=== PATIENT | male | born 1965 | race Caucasian/White ===

== ENCOUNTER 2016-10-02 12:19 | Emergency (ER) | payer OTHER ==
[2016-10-02 12:43] VITALS: RESP 18; TEMP 98.5
--- NOTE | 2016-10-02 13:37 | ED ---
Back Pain HPI - General Chief Complaint: Back Pain/Injury Stated Complaint: Hip/Knee pain Time Seen by Provider: 10/02/16 13:07 Source: patient, RN notes reviewed Limitations: no limitations - History of Present Illness Initial Comments: Patient is a 51-year-old male presents to the emergency room for evaluation of low back and left hip pain. Patient states that about a year ago he fell landing on his lower back/left hip. Patient states he never followed up with a primary care provider. Patient states that he had left over Vicodin from chronic shoulder pain that he was taking to help with low back pain. Patient states over the past few months the back and hip pain has been getting worse. Patient states the pain is now affecting his left knee when he walks. Patient states his pain is primarily in his left anterior hip area. Patient states the pain radiates to his groin. Patient denies saddle anesthesia, numbness or tingling in extremities or fecal/ear incontinence. Patient states he still has not followed up with a primary care provider. Patient states he can't get in with primary care provider until next week. Patient denies any recent injuries or falls. Patient denies any changes in physical activity. - Related Data Previous Rx's Medication Instructions Recorded HYDROcodone/APAP 5-325MG [[place] 1 tab PO Q6HR PRN #12 tab 10/02/16 5-325] predniSONE 40 mg PO DAILY #5 tab 10/02/16 Allergies Allergy/AdvReac Type Severity Reaction Status Date / Time No Known Allergies Allergy Verified 10/02/16 12:43 Review of Systems ROS Statement: Those systems with pertinent positive or pertinent negative responses have been documented in the HPI. ROS Other: All systems not noted in ROS Statement are negative. Past Medical History Past Medical History: No Reported History History of Any Multi-Drug Resistant Organisms: None Reported Past Surgical History: No Surgical Hx Reported Past Psychological History: No Psychological Hx Reported Smoking Status: Current every day smoker Past Alcohol Use History: Occasional Past Drug Use History: None Reported General Exam - General Exam Comments Initial Comments: Sitting in exam room, in no acute distress. Limitations: no limitations General appearance: alert, in no apparent distress Head exam: Present: atraumatic, normocephalic, normal inspection Eye exam: Present: normal appearance ENT exam: Present: normal exam Neck exam: Present: normal inspection Respiratory exam: Absent: respiratory distress Left Hip exam: Present: normal inspection, full ROM, tenderness (Anterior lateral hip joint). Absent: swelling Upper Leg exam: Present: normal inspection, full ROM. Absent: tenderness Knee exam: Present: normal inspection, full ROM. Absent: tenderness Neurovascular tendon exam: Present: no vascular compromise. Absent: pulse deficit (2+ dorsal pedal and posterior tibial pulses), abnormal cap refill ( Capillary refill less than 2 seconds) Back exam: Present: normal inspection, full ROM. Absent: tenderness, paraspinal tenderness, vertebral tenderness Neurological exam: Present: alert, oriented X3, CN II-XII intact Psychiatric exam: Present: normal affect, normal mood Skin exam: Present: warm, dry, intact, normal color. Absent: rash Course Vital Signs 10/02/16 10/02/16 12:40 14:45 Temperature 98.5 F 98.5 F Pulse Rate 91 78 Respiratory 18 18 Rate Blood Pressure 164/101 180/100 O2 Sat by Pulse 96 97 Oximetry Medical Decision Making - Medical Decision Making Patient is a 51-year-old male presents to the emergency room for evaluation of low back and left hip pain. Lumbosacral spine x-ray and left hip x-ray showed evidence her osteoarthritis. Patient also noted to have elevated blood pressure. Patient denies headache, dizziness, chest pain, shortness of breath, diaphoresis. Patient's is present with patient states that she checks his blood pressure regularly and his blood pressure is usually never this high. Patient was given Catapres and advised to follow-up with primary care provider for further evaluation of blood pressure. Advised patient to follow-up with an community service specialist for further evaluation of hip arthritis. Will send patient home with pain medications. Patient states he understands everything that was discussed with him. Return parameters discussed. Case discussed Dr. Edwards. - Radiology Data Radiology results: report reviewed, image reviewed Disposition Clinical Impression: Osteoarthritis of left hip, Low back pain Disposition: HOME SELF-CARE Condition: Good Instructions: Osteoarthritis (ED), Arthritis (ED) Additional Instructions: Warm moist heat. Take medications as directed. Please follow up with primary care provider or community service specialist for further evaluation. If any new symptom arises or symptoms worsen, return to ER as soon as possible. Prescriptions: HYDROcodone/APAP 5-325MG [[place] 5-325] 1 tab PO Q6HR PRN #12 tab PRN Reason: Pain predniSONE 40 mg PO DAILY #5 tab Referrals: Hermelindo Barber MD [STAFF PHYSICIAN] - 1-2 days Time of Disposition: 14:03
--- NOTE | 2016-10-02 13:56 | XR ---
EXAMINATION TYPE: XR Hip Complete LT DATE OF EXAM: 10/02/2016 1:47 PM CLINICAL HISTORY: Left hip pain. TECHNIQUE: AP and frogleg views of the left hip are obtained. COMPARISON: None. FINDINGS: There is no acute fracture/dislocation evident in the left hip. There is advanced degenera tive change with marked superior joint space loss and moderate to severe head neck marginal spurring as well as subchondral cystic change in the acetabulum and femoral head. Some loss of normal femoral Circular shape is present. The overlying soft tissue appears unremarkable. IMPRESSION: There is advanced degenerative change left hip joint as detailed above.
--- NOTE | 2016-10-02 13:57 | XR ---
EXAMINATION TYPE: XR lumbosacral spine min 4V DATE OF EXAM: 10/02/2016 1:47 PM CLINICAL HISTORY: Low back pain TECHNIQUE: Frontal, lateral, and oblique images of the lumbar spine are obtained. COMPARISON: None FINDINGS: There are 5 lumbar type vertebral bodies identified. The lumbar spine shows satisfactory alignment without evidence of acute fracture or dislocation. Vertebral body heights and disk space he ights are within normal limits. Mild multilevel anterior spurring is present. Mild facet arthropathy lower lumbar levels is seen. The oblique images appear within normal limits. Some vascular calcifica tion of abdominal aorta is noted. IMPRESSION: Mild multilevel degenerative changes in lumbar spine as detailed above.
[2016-10-02] MEDS ORDERED: methylPREDNISolone SOD SUCCI 125 MG/2 ML VIAL IM ONE (14:01)
[2016-10-02] MEDS ORDERED: HYDROcodone/APAP 5-325MG 1 EACH TAB PO STA (14:03)
[2016-10-02] MEDS ORDERED: cloNIDine HCL 0.1 MG TAB PO STA (14:30)
[2016-10-02 14:48] VITALS: BP 180/100; PULSE 78
== END 2016-10-02 14:45 | disposition home or self-care (01) ==
LOC: EC 12:19
DX: M16.12 Unilateral primary osteoarthritis, left hip (principal); M54.5 Low back pain; R10.30 Lower abdominal pain, unspecified; I10 Essential (primary) hypertension; M25.562 Pain in left knee; F17.200 Nicotine dependence, unspecified, uncomplicated
CPT/HCPCS: 99283; 96372; 72110; 73502; J2930

== ENCOUNTER → 2016-10-16 | Outpatient (CLI) | payer OTHER ==
--- NOTE | 2016-10-16 15:22 | CT ---
EXAMINATION TYPE: CT pelvis wo con DATE OF EXAM: 10/16/2016 2:53 PM COMPARISON: NONE HISTORY: Lt hip, knee and pelvic pain TECHNIQUE: Helical acquisition through the pelvis was obtained without oral or intravenous contrast. The data was reformatted in axial, coronal and sagittal projections. FINDINGS: There is mild atheromatous calcification involving the visualized arterial tree. There are scattered diverticula throughout the colon. There are bilateral direct inguinal hernias containing fat only. No free fluid is seen. There is a spina bifida occulta at S1. There is facet arthropathy at L4-5 and to a lesser extent L5-S 1. There is pseudocystic change in the left humeral head. Both humeral heads are nonspherical. There is near complete loss of the superior joint space on the left and joint space loss on the right. No acut e osseous lesion is seen. CT DLP: 1125 mGycm Automated exposure control for dose reduction was used. IMPRESSION: 1. SEVERE DEGENERATIVE CHANGE IN THE LEFT HIP AND A LESSER DEGREE OF DEGENERATIVE CHANGES IN THE RIGH T HIP. THERE IS SOME DEGREE OF FEMOROACETABULAR IMPINGEMENT SYNDROME. 2. BILATERAL DIRECT INGUINAL HERNIAS CONTAINING FAT ONLY. 3. UNCOMPLICATED DIVERTICULOSIS OF THE SIGMOID COLON.
--- NOTE | 2016-10-16 15:24 | CT ---
EXAMINATION TYPE: CT lower leg LT wo con DATE OF EXAM: 10/16/2016 2:54 PM COMPARISON: CT pelvis same date HISTORY: Lt hip, pelvic and knee pain CT DLP: 1125 mGycm Automated exposure control for dose reduction was used. Helical imaging obtained through upper lower extremity. Three-dimensional reconstructions performed on an alternate workstation FINDINGS: There is a left inguinal hernia containing fat. Osteoarthritic changes present with subchondral geode formation, marginal spurring, joint space loss, there may be a component of acetabular femoral impin gement, correlate. No sizable hip joint effusion. The left femur is intact, there is no fracture or d islocation. No knee joint effusion. Soft tissues unremarkable, there are some arterial calcifications within the popliteal artery. IMPRESSION: OSTEOARTHRITIS AND POSSIBLE ACETABULAR FEMORAL IMPINGEMENT LEFT HIP. LEFT INGUINAL HERNIA.
== END | disposition home or self-care (01) ==
LOC: RADCTMAIN 14:14
PROVIDERS: ATTEND Family Medicine
DX: M16.12 Unilateral primary osteoarthritis, left hip (principal); M25.851 Other specified joint disorders, right hip
CPT/HCPCS: 72192

== ENCOUNTER 2018-06-14 13:42 | Emergency (ER) | payer BC, OTHER ==
[2018-06-14 13:49] VITALS: BP 137/95; PULSE 105; RESP 18; TEMP 98.5
[2018-06-14] MEDS ORDERED: KETOROLAC 60 MG/2 ML VIAL IM STA (14:02)
[2018-06-14] MEDS ORDERED: ORPHENADRINE 30 MG/ML 2 ML VIAL IM STA (14:02)
--- NOTE | 2018-06-14 14:04 | ED ---
Back Pain HPI - General Chief Complaint: Back Pain/Injury Stated Complaint: back pain Time Seen by Provider: 06/14/18 13:53 Source: patient, RN notes reviewed Limitations: no limitations - History of Present Illness Initial Comments: This is a pleasant 53-year-old male who presents emergency department after straining his back on Friday lifting at tarp which had dirt on it. Patient is complaining of sharp and aching pain to the left lumbar paraspinals radiating into the left buttock. Pain does not go down the leg. Patient states that movement exacerbates the pain. Patient denies pain elsewhere. No abdominal pain. No chest pain or shortness of breath. No problems with bowel movements or urination. No symptoms of saddle anesthesia. No fever or night sweats. No recent weight loss. No direct trauma. Patient states she does have a history of chronic left hip pain secondary to a bone spur. Patient states he was told that he needs surgery for his left hip. Patient is ambulating without difficulty. Patient does take tramadol at home for pain. Patient is also a cigarette smoker. No other complaints. MD Complaint: back pain - Related Data Previous Rx's Medication Instructions Recorded HYDROcodone/APAP 5-325MG [[place] 1 tab PO Q6HR PRN #12 tab 10/02/16 5-325] predniSONE 40 mg PO DAILY #5 tab 10/02/16 Cyclobenzaprine [Flexeril] 10 mg PO TID PRN #20 tab 06/14/18 methylPREDNISolone [Medrol] 4 mg PO DIRECTED #1 tab.ds.pk 06/14/18 Allergies Allergy/AdvReac Type Severity Reaction Status Date / Time No Known Allergies Allergy Verified 06/14/18 13:49 Review of Systems ROS Statement: Those systems with pertinent positive or pertinent negative responses have been documented in the HPI. ROS Other: All systems not noted in ROS Statement are negative. Past Medical History Past Medical History: No Reported History Additional Past Medical History / Comment(s): chronic hip pain History of Any Multi-Drug Resistant Organisms: None Reported Past Surgical History: No Surgical Hx Reported Past Psychological History: No Psychological Hx Reported Smoking Status: Current every day smoker Past Alcohol Use History: Occasional Past Drug Use History: None Reported General Exam Limitations: no limitations General appearance: alert, in no apparent distress Head exam: Present: atraumatic, normocephalic, normal inspection Eye exam: Present: normal appearance, EOMI. Absent: scleral icterus, conjunctival injection, periorbital swelling ENT exam: Present: normal exam, mucous membranes moist Neck exam: Present: normal inspection. Absent: tenderness, meningismus, lymphadenopathy Respiratory exam: Present: normal lung sounds bilaterally. Absent: respiratory distress, wheezes, rales, rhonchi, stridor Cardiovascular Exam: Present: regular rate, normal rhythm, normal heart sounds. Absent: systolic murmur, diastolic murmur, rubs, gallop, clicks GI/Abdominal exam: Present: soft. Absent: distended, tenderness, guarding, rebound, rigid Rectal exam: Present: deferred Extremities exam: Present: normal inspection, full ROM, normal capillary refill. Absent: tenderness, pedal edema, joint swelling, calf tenderness Back exam: Present: normal inspection, full ROM, tenderness, muscle spasm, paraspinal tenderness. Absent: vertebral tenderness, rash noted Expanded Back exam: Absent: saddle anesthesia Back exam: Negative Straight Leg Raising: Left, Right Neurological exam: Present: alert, oriented X3, CN II-XII intact Psychiatric exam: Present: normal affect, normal mood Skin exam: Present: warm, dry, intact, normal color. Absent: rash Course Vital Signs 06/14/18 13:46 Temperature 98.5 F Pulse Rate 105 H Respiratory 18 Rate Blood Pressure 137/95 Medical Decision Making - Medical Decision Making Return and follow-up parameters were discussed with the patient. Plain film x- rays lumbar spine were completed. Patient was counseled on smoking cessation. Patient was counseled on all findings. Patient counseling conservative measures. Patient does show degenerative changes especially at L2-L3. This was read as moderate spondylosis with disc space narrowing. This was progressive since last study. - Radiology Data Radiology results: report reviewed, image reviewed Disposition Clinical Impression: Mechanical back pain Disposition: HOME SELF-CARE Condition: Stable Instructions: How to Stop Smoking (ED), Acute Low Back Pain (ED) Additional Instructions: Call tomorrow morning for follow-up appointment with your regular physician. Return to the ER if any problems or difficulties arise or if the symptoms worsen. You can also take [id number] Tylenol as directed on the bottle for additional pain control. Apply moist heat to your back 20 minutes at a time 4 times daily. Partake in light walking for 20 minutes at a time a few times per day. Prescriptions: Cyclobenzaprine [Flexeril] 10 mg PO TID PRN #20 tab PRN Reason: Spasms methylPREDNISolone [Medrol] 4 mg PO DIRECTED #1 tab.ds.pk Is patient prescribed a controlled substance at d/c from ED?: No Referrals: Rios Rosenthal Jr, [Primary Care Provider] - 1-2 days Forms: Work/School Release
--- NOTE | 2018-06-14 15:03 | XR ---
EXAMINATION TYPE: XR lumbar spine 2 or 3V DATE OF EXAM: 06/14/2018 COMPARISON: October 02, 2016 HISTORY: Back pain TECHNIQUE: 3 views FINDINGS: Lumbar vertebra have fairly normal alignment. There is degenerative disc space narrowing at L2-3 with spurring. Posterior elements are intact. Abdominal aorta is atheromatous. Sacroiliac joint s are intact. IMPRESSION: There is moderate spondylosis at L2-3 that shows significant progression compared to old exam. No fracture.
[2018-06-14] MEDS ORDERED: methylPREDNISolone SOD SUCCI 125 MG/2 ML VIAL IM STA (15:13)
--- NOTE | 2018-06-16 08:10 | CDI ---
Documentation Clarification OP Dear Conrado Teresa PA-C Please provide smoking cessation total time spent on counseling for accurate charging purposes.. Thank you, Hernan Banegas Jacquard Loom Card Changer If you have any questions, please contact Senior Hardware Engineer at [phone] Do not remember on this May account. 09/03/18 KELLI
== END 2018-06-14 15:25 | disposition home or self-care (01) ==
LOC: EC 13:42
DX: M48.061 Spinal stenosis, lumbar region without neurogenic claudication (principal); M47.896 Other spondylosis, lumbar region; F17.210 Nicotine dependence, cigarettes, uncomplicated
CPT/HCPCS: 72100; 99283; 96372 ×3; J2360; J2930; J1885

== ENCOUNTER → 2018-07-31 | Outpatient (CLI) | payer SELFPAY | END | disposition home or self-care (01) | LOC: LABPAT 10:25 | PROVIDERS: ATTEND Anesthesiology | DX: Z01.818 Encounter for other preprocedural examination (principal); I10 Essential (primary) hypertension; M16.12 Unilateral primary osteoarthritis, left hip | CPT/HCPCS: 93005 ==

== ENCOUNTER 2018-08-04 06:14 | Inpatient (IN) | payer BC, OTHER ==
[2018-07-29 14:44] VITALS: BMI 25.5
--- NOTE | 2018-08-03 10:21 | HP ---
HISTORY AND PHYSICAL CHIEF COMPLAINT: Left hip pain. 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 It has worsened recently. He is having a difficult time with weightbearing activities. He limps significantly. He has tried medications and previous injections without much relief. PAST MEDICAL HISTORY: Significant for hypertension, arthritis. PAST SURGICAL HISTORY: Negative. CURRENT MEDICATIONS: Aleve, Tramadol and lisinopril. ALLERGIES: He denies drug allergies. FAMILY HISTORY: Significant for cancer. SOCIAL HISTORY: Significant for 1 pack per day tobacco use in addition to social alcohol use. REVIEW OF SYSTEMS: Sixteen point review of systems otherwise reviewed and is noncontributory. PHYSICAL EXAMINATION: On examination, the patient is approximately 5 foot 10, 180 pounds of mesomorphic habitus. HEENT exam is nonfocal. Neck is supple. Passive motion left hip, flexion 60 degrees, external rotation with the hip flexed 40 degrees, internal rotation -10 degrees with pain. Clinically, he has 1 cm shortening left lower extremity compared to the right. Does walk with an antalgic gait pattern. His distal neurovascular appears intact in the left lower extremity. AP and lateral views of the left hip along with a AP pelvis x-ray shows severe osteoarthrosis of the left hip with [id number] changes. Cystic changes involving the central portion of the femoral head are noted. IMPRESSION: Left hip severe osteoarthrosis-symptomatic. RECOMMENDATIONS: I talked to the patient at length at length regarding his condition and treatment options. After thorough discussion of his options, he opts to proceed with surgery. We will plan to proceed with left total hip arthroplasty using direct anterior technique. We will institute DVT prophylaxis postoperatively. Risks and benefits were discussed at length in layman's terms. MMODL / IJN: [id number] /
[~2018-08-04 06:14] MED LIST: ACETAMINOPHEN TAB 500 MG TAB PO ONE; DEXAMETHASONE SOD PHOSPHATE 10 MG/ML 1 ML VIAL IV ONE; LIDOCAINE 1% 20 ML VIAL (10MG/ML) FOR IV START INTRADERMA PRN; MELOXICAM 7.5 MG TAB PO ONE; MIDAZOLAM (PF) 2 MG/2 ML VIAL IV PRN; ONDANSETRON 4 MG/2 ML VIAL IVP ONE; TRANEXAMIC ACID 1,000 MG in SODIUM CHLORIDE 0.9% 50 ML IVPB ONE; ceFAZolin IN SWFI 2 GM/20 ML SYRINGE IVP ONE; fentaNYL (PF) 50 MCG/ML 2 ML AMP IV PRN
[2018-08-04] MEDS: LACTATED RINGERS 1,000 ML IV SCH (07:06)
[2018-08-04] MEDS ORDERED: TRANEXAMIC ACID 1,000 MG/10 ML VIAL ONE (08:00)
[2018-08-04] MEDS ORDERED: SODIUM CHLORIDE 0.9% 100 ML BAG ONE (08:00)
[2018-08-04] MEDS ORDERED: HEPARIN SODIUM,PORCINE 10,000 UNIT/ML 1 ML VIAL ONE (08:00)
[2018-08-04] MEDS ORDERED: fentaNYL (PF) 50 MCG/ML 2 ML AMP ONE (08:00)
[2018-08-04] MEDS ORDERED: SODIUM CHLORIDE 0.9% IRRIG 1,000 ML BTL IRRIGATION ONE (08:00)
[2018-08-04] MEDS ORDERED: MIDAZOLAM 2 MG/2 ML VIAL ONE (08:00)
[2018-08-04] MEDS ORDERED: ceFAZolin 3,000 MG in SODIUM CHLORIDE 0.9% IRRIGATIO 3,000 ML IRRIGATION ONE (08:39)
[2018-08-04] MEDS ORDERED: HYDROcodone/APAP 7.5-325MG 1 EACH TAB PO PRN ×2 (10:00)
[2018-08-04] MEDS ORDERED: MAGNESIUM HYDROXIDE 2,400 MG/10 ML CUP PO PRN (10:00)
[2018-08-04] MEDS ORDERED: NALOXONE 0.4 MG/ML 1 ML VIAL IV PRN (10:00)
[2018-08-04] MEDS ORDERED: HYDROmorphone 1 MG/ML 1 ML SYRINGE IVP PRN (10:00)
[2018-08-04] MEDS ORDERED: ONDANSETRON 4 MG/2 ML VIAL IVP PRN (10:00)
[2018-08-04] MEDS ORDERED: LACTATED RINGERS 1,000 ML IV ONE (10:04)
--- NOTE | 2018-08-04 10:14 | FL ---
EXAMINATION TYPE: FL guidance operating room, XR Hip Limited LT DATE OF EXAM: 08/04/2018 CLINICAL HISTORY: Left hip replacement. TECHNIQUE: Fluoroscopy. Limited intraoperative views left hip. COMPARISON: CT pelvis October 16, 2016. FINDINGS: Fluoroscopic guidance was provided during left hip replacement procedure performed by Dr. Garcia. A total of 59 seconds of fluoroscopic time was utilized during the procedure and single spot fluoroscopic intraoperative image is acquired. Single image acquired shows metallic hardware satisfactory in position on single frontal projection. IMPRESSION: As Above.
--- NOTE | 2018-08-04 10:30 | P.OP ---
Date of Procedure: 08/04/18 Preoperative Diagnosis: Left hip severe osteoarthrosis Postoperative Diagnosis: Same Procedure(s) Performed: Left total hip arthroplastyanterior approach. Implants: [employer] [place] size 12 press-fit standard collared femoral stem, 36 mm +5 cobalt chrome femoral head, 56 mm [place] acetabular shell, neutral polyethylene liner. Anesthesia: spinal Surgeon: John Garcia Train Crew Member #1: Nader Mcnamara Estimated Blood Loss (ml): 250 Pathology: other (Femoral head) Condition: stable Disposition: PACU Indications for Procedure: The patient's a 53-year-old male who presents with progressive left hip pain secondary to osteoporosis despite conservative measures. A discussion of the risks and benefits of operative intervention versus continued conservative measures was made with the patient. He opted to proceed with surgery. Operative risks to include infection, neurovascular injury, development of blood clots, possible instability, possible leg length discrepancy, and possible need for subsequent procedures was discussed. Informed consent was obtained. Operative Findings: As below Description of Procedure: The patient was brought to the operating room, and after induction of spinal anesthesia was placed supine on the Lorie table. Positioning was checked with fluoroscopy. The left hip was then prepped and draped in a normal fashion. A 12 cm incision was then made starting 2 fingerbreadths distal and 3 finger breaths posterior to the ASIS in line with the proximal femur. The skin was incised sharply. Subcutaneous tissues were divided sharply. Electrocautery was used for hemostasis. The fascia was split in line with skin incision. The interval between the sartorius and tensor fascia bisi was then bluntly developed. The posterior fascia was opened with electrocautery. The lateral circumflex vessels were identified and cauterized prior to sectioning. A retractor was placed along the superior femoral neck as well as the anterior acetabular rim. A wide capsulotomy was performed. The neck cut was then made at a 45 angle to the shaft approximately 1 1/2 cm above the level of the lesser trochanter. The head was extracted. Attention was then paid towards preparing the acetabular. Anterior and posterior retractors were placed. The remaining capsular labral tissue sharply debrided clearly defining the acetabular margins. I began reaming with a 49 mm reamer taking care to initially medialize then reaming at 45 of abduction and 20 of anteversion. Sequential reaming is performed up to 55 mm. A trial 56 mm acetabular shell was inserted in the same orientation and was fully seated. There was good rim fit and stability. Positioning was checked with fluoroscopy. The final 56 mm acetabular shell was inserted again at 45 of abduction and 20 of anteversion. This was fully seated. There was good rim fit and stability. I did place a 6.5 mm x 25 mm cancellus screw posteriorly. Again fluoroscopy was used to check the adequacy of placement. A neutral polyethylene liner was gently impacted. Care was taken to avoid any soft tissue interposition. Pulsatile lavage was utilized. Attention was then paid towards preparing the proximal femur. The central region was cleared of soft tissue. A canal finder was used to find the femoral canal. Sequential broaching was performed up to size 12 taking care to lateralize proximally. A calcar mill was used to fashion the medial calcar. There was good rotational stability. A standard neck along with a 36 mm +5 head was placed. The hip was gently reduced. Fluoroscopy was used to check the adequacy of positioning along with leg lengths. I felt both were good. The hip was gently dislocated. The trial components were removed. The final size 12 collared standard press-fit femoral stem was inserted parallel to the posterior cortex. This was fully seated and there was good rotational stability. A 36 mm +5 head was placed. This was gently impacted. The hip was then gently reduced. Final fluoroscopic view showed adequate placement implant along with druze of leg length. Stability was checked with 80 of external rotation and 60 of extension of the right hip. The wound was irrigated with sterile lavage. The fascia was closed with running 0 Vicryl suture. There was minimal drainage therefore a deep drain was not placed. The second dose of IV TXA was given. The subcutaneous tissues were reapproximated interrupted 2-0 Vicryl sutures. The skin was reapproximated with 3-0 subcuticular strata fix suture. Skin tape and adhesive was applied. A sterile dressing was applied. The patient was then awoken from sedation and transferred to recovery room in good condition. Blood loss was estimated at 250 mL. No complications were incurred. Sponge and needle counts were correct at the end of the case. Maximo ALFONSO assisted during the major components is case to include exposure, bone resection, implantation, and closure.
--- NOTE | 2018-08-04 10:46 | XR ---
EXAMINATION TYPE: XR Hip Limited LT DATE OF EXAM: 08/04/2018 CLINICAL HISTORY: Left hip pain and osteoarthritis. TECHNIQUE: Single AP portable view of left hip is obtained immediately postoperatively. COMPARISON: None. FINDINGS: Metallic hardware from total left hip arthroplasty is seen and appears satisfactory in alig nment and position. There is evidence of recent surgery with subcutaneous gas noted laterally. IMPRESSION: Metallic hardware from left hip arthroplasty is satisfactory in position.
[2018-08-04] MEDS: HYDROmorphone 1 MG/ML 1 ML SYRINGE IVP PRN ×6 (11:34→21:50)
[2018-08-04] MEDS: ceFAZolin IN SWFI 2 GM/20 ML SYRINGE IVP SCH ×2 (15:54→23:16)
[2018-08-04] MEDS ORDERED: HYDROmorphone 1 MG/ML 1 ML SYRINGE IVP STA (17:18)
[2018-08-04] MEDS ORDERED: HYDROcodone/APAP 10-325MG 1 EACH TAB PO PRN (17:19)
[2018-08-04] MEDS: traMADol 50 MG TAB PO PRN ×2 (17:28→23:17)
[2018-08-04] MEDS: hydrOXYzine PAMOATE 25 MG CAP PO PRN (19:59)
[2018-08-04] MEDS: HYDROcodone/APAP 10-325MG 1 EACH TAB PO PRN (20:00)
[2018-08-04] MEDS ORDERED: SENNOSIDES-DOCUSATE SODIUM 1 EACH TAB PO SCH (21:00)
[2018-08-05] MEDS: HYDROcodone/APAP 10-325MG 1 EACH TAB PO PRN (05:39)
[2018-08-05] MEDS: HYDROmorphone 1 MG/ML 1 ML SYRINGE IVP PRN (05:40)
[2018-08-05] MEDS: LACTATED RINGERS 1,000 ML IV SCH (05:47)
[2018-08-05 07:29] VITALS: BP 129/84; PULSE 100; RESP 17; TEMP 98.4
[2018-08-05 07:42] LABS: Basophils % (A) 0 %; Eosinophils # (A) 0.1 k/uL (0-0.7); Eosinophils % (A) 1 %; HCT 42.3 % (39.0-53.0); HGB 13.9 gm/dL (13.0-17.5); Lymphocytes # (A) 2.4 k/uL (1.0-4.8); Lymphocytes % (A) 19 %; MCH 30.7 pg (25.0-35.0); MCHC 32.8 g/dL (31.0-37.0); MCV 93.6 fL (80.0-100.0); Mean Platelet Volume 7.3; Monocytes # (A) 0.7 k/uL (0-1.0); Monocytes % (A) 5 %; Neutrophils # (A) 9.6 k/uL (1.3-7.7); Neutrophils % (A) 74 %; Platelet Count 249 k/uL (150-450); RBC 4.52 m/uL (4.30-5.90); RDW 13.6 % (11.5-15.5)
[2018-08-05] MEDS ORDERED: RIVAROXABAN 10 MG TAB PO SCH (09:00)
[2018-08-05] MEDS ORDERED: LISINOPRIL 5 MG TAB PO SCH (09:00)
[2018-08-05] MEDS: traMADol 50 MG TAB PO PRN (09:38)
[2018-08-05] MEDS: hydrOXYzine PAMOATE 25 MG CAP PO PRN (09:39)
--- NOTE | 2018-08-05 10:59 | P.PN ---
Subjective Progress Note Date: 08/05/18 Principal diagnosis: Status post left total hip arthroplasty Patient seen today resting in his hospital bed, his family is present at bedside. He is ambulating well with therapy, he is urinating on his own. His pain is well-controlled. He denies any chest pain, shortness of breath, fever chills. Objective - Vital Signs Vital signs: Vital Signs Temp 98.4 F 08/05/18 07:27 Pulse 100 08/05/18 07:27 Resp 17 08/05/18 07:27 BP 129/84 08/05/18 07:27 Pulse Ox 95 08/05/18 07:27 Intake & Output 08/04/18 08/05/18 08/05/18 18:59 06:59 18:59 Intake Total 1541 630 Output Total 550 Balance 991 630 Weight 80.739 kg Intake: IV 1401 Intake, IV Titration 140 630 Amount Lactated Ringers 1,000 ml 140 630 @ 70 mls/hr IV .[id number] RON Rx#:[id number] Output: Urine 300 Estimated Blood Loss 250 Other: Voiding Method Toilet Toilet Toilet Urinal Urinal # Voids 3 - Exam Left lower extremity: Incision is clean, dry, and intact. The exofin fusion tape is in good condition. There is minimal soft tissue swelling and ecchymosis surrounding the medial and lateral aspects of the incision. Calf is soft, no tenderness with palpation. Plantar flexion, dorsiflexion, EHL, FHL are intact. Sensory exam to light touch throughout the extremity is intact, dorsal pedis pulses 2+. - Labs CBC & Chem 7: 08/05/18 07:21 Labs: Abnormal Lab Results - Last 24 Hours (Table) 08/05/18 Range/Units 07:21 WBC 13.0 H (3.8-10.6) k/uL Neutrophils # 9.6 H (1.3-7.7) k/uL Assessment and Plan Plan: Assessment: Postoperative day #1 status post left total hip arthroplasty Plan: Pain control, we'll discharge home on oral medication GI and DVT prophylaxis, Eliquis 2.5mb bid for 1 month Daily dressing changes, wound care was discussed Home physical therapy and nursing after discharge Medical recommendations Discharge planning: Patient will be discharged home today Time with Patient: Less than 30
== END 2018-08-05 12:07 | disposition home health service (06) | DRG 470 ==
LOC: 2ORMAIN 06:14 → 4SSUR 12:31
PROVIDERS: ADMIT Orthopaedic Surgery; ATTEND Orthopaedic Surgery
PROC: 30233N0 Transfusion of Autologous Red Blood Cells into Peripheral Vein, Percutaneous Approach (ICD-10-PCS; 2018-08-04)
PROC: 0SRB02A Replacement of Left Hip Joint with Metal on Polyethylene Synthetic Substitute, Uncemented, Open Approach (ICD-10-PCS; principal; 2018-08-04 08:00)
DX: M19.90 Unspecified osteoarthritis, unspecified site (principal); I10 Essential (primary) hypertension; M81.0 Age-related osteoporosis without current pathological fracture; F17.210 Nicotine dependence, cigarettes, uncomplicated; Z79.899 Other long term (current) drug therapy
CPT/HCPCS: 73501; 85025; 86850; 86891; 86900; 86901; 88300

== ENCOUNTER → 2019-05-11 | Outpatient (CLI) | payer OTHER ==
--- NOTE | 2019-05-11 10:51 | US ---
EXAMINATION TYPE: US groin RT DATE OF EXAM: 05/11/2019 COMPARISON: CT pelvis October 16, 2016 CLINICAL HISTORY: R10.31Right lower quadrant pain, R10.84 Generalized. Pt states bilateral groin ras ia repair in February. Pt having pain and palpable area right groin s/p surgery Within right groin where pt feels palpable and pain there is a complex area= 5.0 x 3.0 x 4.3 cm/ le ft groin scanned for comparison and also shows a smaller complex area= 2.8 x 1.5 x 2.2 cm/ No change with valsalva, no blood flow within IMPRESSION: Right greater than left oval hypoechoic areas in the bilateral groin could reflect small to moderate size right greater than left postsurgical hematomas. Consider short-term ultrasound foll ow-up and/or CT correlation.
== END | disposition home or self-care (01) ==
LOC: RADUSWWP 09:18
PROVIDERS: ATTEND Family Medicine
DX: R19.03 Right lower quadrant abdominal swelling, mass and lump (principal); R10.31 Right lower quadrant pain; R10.84 Generalized abdominal pain

== ENCOUNTER 2019-11-03 12:12 | Emergency (ER) | payer OTHER ==
--- NOTE | 2019-11-03 13:06 | XR ---
EXAMINATION TYPE: XR elbow complete LT DATE OF EXAM: 11/03/2019 CLINICAL HISTORY: Left elbow pain after fall TECHNIQUE: Frontal, lateral and oblique images of the left elbow are obtained. COMPARISON: None FINDINGS: There is no acute fracture/dislocation evident in the left elbow. There are well-corticat ed fragments lateral to the lateral humeral epicondyle from old injury. No abnormal fat pad signs are seen. Soft tissue swelling is seen of the posterior elbow and over the posterior distal humerus. Few calcifications are seen near the distal triceps tendons. IMPRESSION: There is no acute fracture or dislocation in the left elbow. Soft tissue swelling over t he posterior elbow. Correlate for olecranon bursitis or triceps injury.
--- NOTE | 2019-11-03 13:08 | XR ---
EXAMINATION TYPE: XR shoulder complete LT DATE OF EXAM: 11/03/2019 CLINICAL HISTORY: Left shoulder pain after fall TECHNIQUE: Three views of the left shoulder are obtained. COMPARISON: None. FINDINGS: There is no acute fracture/dislocation evident in the left shoulder. The acromioclavicula r and glenohumeral joint spaces appear aligned. Moderate acromioclavicular arthropathy is seen with p rotuberant osteophytes and capsular hypertrophy. Protuberant osteophytes are also seen of the glenohu meral joint indicative of moderate arthropathy. Osteophyte projects from the inferior humeral head in to the axillary recess. This can create axillary nerve impingement clinically. Subtle questionable sc lerotic lesion of the proximal humeral diaphysis measuring 1 cm. The visualized ribs are intact and u nremarkable. IMPRESSION: 1. No acute fracture or dislocation in the left shoulder. 2. Moderate acromioclavicular arthropathy and glenohumeral arthropathy. MRI could be performed to vika luate for axillary nerve impingement given the protuberant osteophyte from the medial inferior noel l head and to evaluate a questionable 1 cm proximal diaphyseal sclerotic lesion of the left humerus.
--- NOTE | 2019-11-03 13:16 | ED ---
Upper Extremity HPI - General Chief Complaint: Extremity Injury, Upper Stated Complaint: Fall, arm pain Time Seen by Provider: 11/03/19 12:32 Source: patient, RN notes reviewed, old records reviewed Mode of arrival: ambulatory Limitations: no limitations - History of Present Illness Initial Comments: This patient's a 54-year-old male who presents today for complaints of left upper arm pain after falling into a fence. Patient reports that he landed onto his arm and elbow. Patient states that he has pain with range of motion but said. He reports that he is right-handed. He denies any previous fractures or injuries to this arm. - Related Data Home Medications Medication Instructions Recorded Confirmed Lisinopril [Zestril] 5 mg PO QAM 07/29/18 08/04/18 Naproxen Sodium [Aleve] 220 mg PO BID PRN 07/29/18 08/04/18 Previous Rx's Medication Instructions Recorded Apixaban [Eliquis] 2.5 mg PO BID #56 tab 08/05/18 Docusate [Colace] 100 mg PO DAILY #30 capsule 08/05/18 Hydrocodone/Acetaminophen [[place] 1 - 2 each PO Q6H PRN #56 tab 08/05/18 10-325] traMADol HCl [Ultram] 50 mg PO Q6H PRN #28 tab 08/05/18 Ibuprofen [Motrin] 600 mg PO Q8HR PRN #30 tab 11/03/19 Allergies Allergy/AdvReac Type Severity Reaction Status Date / Time No Known Allergies Allergy Verified 08/04/18 13:23 Review of Systems ROS Statement: Those systems with pertinent positive or pertinent negative responses have been documented in the HPI. ROS Other: All systems not noted in ROS Statement are negative. Past Medical History Past Medical History: Hypertension, Osteoarthritis (OA) Additional Past Medical History / Comment(s): chronic hip pain and rosanna hands History of Any Multi-Drug Resistant Organisms: None Reported Past Surgical History: No Surgical Hx Reported, Hernia Repair, Orthopedic Surgery Additional Past Surgical History / Comment(s): left hip replacement Past Anesthesia/Blood Transfusion Reactions: No Reported Reaction Additional Past Anesthesia/Blood Transfusion Reaction / Comment(s): no hx general anesthesia Past Psychological History: No Psychological Hx Reported Smoking Status: Current every day smoker Past Alcohol Use History: Occasional Past Drug Use History: None Reported - Past Family History Mother Family Medical History: No Reported History General Exam - General Exam Comments Initial Comments: 54-year-old male. Alert and oriented 3. Patient appears in no significant distress. Limitations: no limitations General appearance: alert, in no apparent distress Head exam: Present: atraumatic, normocephalic, normal inspection Eye exam: Present: normal appearance, PERRL, EOMI. Absent: scleral icterus, conjunctival injection, periorbital swelling ENT exam: Present: normal exam, mucous membranes moist Neck exam: Present: normal inspection. Absent: tenderness, meningismus, lymphadenopathy Respiratory exam: Present: normal lung sounds bilaterally. Absent: respiratory distress, wheezes, rales, rhonchi, stridor Cardiovascular Exam: Present: regular rate, normal rhythm, normal heart sounds. Absent: systolic murmur, diastolic murmur, rubs, gallop, clicks GI/Abdominal exam: Present: soft, normal bowel sounds. Absent: distended, tenderness, guarding, rebound, rigid Extremities exam: Present: normal inspection, full ROM, normal capillary refill. Absent: tenderness, pedal edema, joint swelling, calf tenderness Left Shoulder Exam: Present: normal inspection, full ROM, tenderness, swelling Upper Arm exam: Present: normal inspection, full ROM Elbow exam: Present: normal inspection, full ROM, tenderness (over olecranon) Forearm Wrist exam: Present: normal inspection, full ROM Hand Wrist exam: Present: normal inspection, full ROM Back exam: Present: normal inspection Neurological exam: Present: alert, oriented X3, CN II-XII intact Psychiatric exam: Present: normal affect, normal mood Skin exam: Present: warm, dry, intact, normal color. Absent: rash Course Vital Signs 11/03/19 11/03/19 12:24 14:13 Temperature 98.2 F 97.8 F Pulse Rate 89 87 Respiratory 17 19 Rate Blood Pressure 138/90 130/79 O2 Sat by Pulse 94 L 95 Oximetry Procedures - Orthopedic Splinting/Casting Injury #1 Side: left Upper Extremity Injury Location: shoulder Upper Extremity Immobilizer: sling/shoulder immobilizer Medical Decision Making - Medical Decision Making Patient [id number] male presents with left shoulder and elbow pain after fall. X-rays show no fractures. The Patient does have evidence arthropathy in the right shoulder x-ray possible nerve impingement was noted. Discussed Patient follow-up with orthopedic and may need an MRI. Patient understands he'll be given a sling but distal practice range motion of the shoulder to avoid frozen shoulder syndrome. Patient understands treatment plan will comply. Return parameters were discussed. He has at home pain medication. - Radiology Data Radiology results: report reviewed No acute fracture dislocation of the left elbow. Soft tissue swelling over the posterior elbow. Correlating for olecranon bursitis or triceps injury. No acute fracture dislocation left shoulder. Moderate acromioclavicular arthropathy and glenohumeral arthropathy. MRI can be performed to evaluate for x-ray nerve impingement given protuberant osteophyte from the medial inferior humeral head and questionable 1 cm sclerotic lesion of the left humerus. Disposition Clinical Impression: Elbow contusion, Rotator cuff injury Disposition: HOME SELF-CARE Condition: Good Instructions (If sedation given, give patient instructions): Rotator Cuff Injury (ED), Contusion in Adults (ED) Additional Instructions: Patient advised to practice range of motion of the shoulder. Wear the sling in between. Patient to follow-up with orthopedic. Return to the ED if any alarming signs or symptoms occur. Prescriptions: Ibuprofen [Motrin] 600 mg PO Q8HR PRN #30 tab PRN Reason: Pain Is patient prescribed a controlled substance at d/c from ED?: No Referrals: Rios Rosenthal Jr, DO [Primary Care Provider] - 1-2 days Nader Mcnamara PAC [PHYSICIAN TOWER ATTENDANT] - 1-2 days Time of Disposition: 13:53
[2019-11-03] MEDS ORDERED: ACET/COD 300 MG/30 MG STARTER PACK 6 TAB BTL PO STA (13:53)
[2019-11-03] MEDS ORDERED: IBUPROFEN 600 MG STARTER PACK 4 TAB BTL PO STA (13:53)
[2019-11-03 14:14] VITALS: BP 130/79; PULSE 87; RESP 19; TEMP 97.8
== END 2019-11-03 14:14 | disposition home or self-care (01) ==
LOC: EC 12:12
DX: S50.02XA Contusion of left elbow, initial encounter (principal); S46.002A Unspecified injury of muscle(s) and tendon(s) of the rotator cuff of left shoulder, initial encounter; M12.812 Other specific arthropathies, not elsewhere classified, left shoulder; I10 Essential (primary) hypertension; F17.200 Nicotine dependence, unspecified, uncomplicated; Z79.899 Other long term (current) drug therapy; Z96.642 Presence of left artificial hip joint; W19.XXXA Unspecified fall, initial encounter
CPT/HCPCS: 99284

== ENCOUNTER → 2024-10-29 | Outpatient (CLI) | payer MEDICARE, OTHER | END | disposition home or self-care (01) | LOC: LABPAT 13:08 | PROVIDERS: ATTEND Orthopaedic Surgery | DX: Z01.812 Encounter for preprocedural laboratory examination (principal); Z22.322 Carrier or suspected carrier of Methicillin resistant Staphylococcus aureus | CPT/HCPCS: 36415; 86850; 86900; 86901; 87070 ==

== ENCOUNTER 2024-11-02 08:06 | Day surgery (SDC) | payer MEDICARE, OTHER ==
--- NOTE | 2024-11-01 08:46 | P.HPOR ---
History of Present Illness H&P Date: 11/01/24 Chief Complaint: Right hip pain The patient is a 59-year-old male who presents with progressive right hip pain for the past several years worsening over the past 6 months. He notes groin and thigh pain with weightbearing activities. He has stiffness. He is having night symptoms. He is taking Victoria for this. He has tried home exercises along with activity modifications without much relief. Review of Systems Per HPI Past Medical History Past Medical History: Hypertension, Osteoarthritis (OA) Additional Past Medical History / Comment(s): chronic hip pain and rosanna hands History of Any Multi-Drug Resistant Organisms: None Reported Past Surgical History: Hernia Repair, Joint Replacement Additional Past Surgical History / Comment(s): left hip replacement, Past Anesthesia/Blood Transfusion Reactions: No Reported Reaction Additional Past Anesthesia/Blood Transfusion Reaction / Comment(s): no hx general anesthesia. no blood tx hx Smoking Status: Current every day smoker - Past Family History Mother Family Medical History: No Reported History Medications and Allergies Home Medications Medication Instructions Recorded Confirmed Type Naproxen Sodium [Aleve] 220 mg PO BID PRN 07/29/18 10/28/24 History lisinopriL [Zestril] 5 mg PO QAM 07/29/18 10/28/24 History Ibuprofen [Motrin] 600 mg PO Q8HR PRN #30 tab 11/03/19 10/28/24 Rx Hydrocodone-Acetamin 7.5 mg PO DIRECTED PRN 10/28/24 10/28/24 History Meloxicam 7.5 mg PO BID PRN 10/28/24 10/28/24 History hydroCHLOROthiazide 25 mg PO DAILY 10/28/24 10/28/24 History Allergies Allergy/AdvReac Type Severity Reaction Status Date / Time No Known Allergies Allergy Verified 10/28/24 10:40 Physical Examination - Hip right Gait: antalgic Tenderness with palpation: anterior Pain with motion: internal rotation and hip flexion ROM: flexion: 80 degrees ROM: internal rotation: 0 degrees ROM: external rotation: 50 degrees Crepitus with motion: Yes Strength: extension: 5/5 Strength: flexion: 5/5 Strength: abduction: 5/5 Tests: impingement tests: positive Results The patient is a well-developed well-nourished male approximately 5 foot 10, 201 pounds of endomorphic habitus. HEENT exam is nonfocal, neck is supple. He has painful passive motion of the right hip. Straight leg raise is negative. Clinically he has shortening of the right lower extremity compared to left. His distal neurovascular exam appears intact in the right lower extremity. - Diagnostic results Hip x-ray: image reviewed (X-rays of the right hip obtained the office show severe osteoarthrosis with [id number] changes along with subchondral sclerosis.) Assessment and Plan Assessment: Right hip severe osteoarthrosissymptomatic Plan: Patient at length regarding his condition along with treatment options. At this point is quite symptomatic having pain, stiffness, and limitation secondary to right hip osteoarthrosis despite conservative measures. After a thorough discussion he opts to proceed with surgery. We will plan to proceed with a right total hip arthroplasty utilizing an anterior approach. Risks and benefits were discussed at length in layman's terms. We will institute DVT prophylaxis postoperatively.
[~2024-11-02 08:06] MED LIST changes: -ACETAMINOPHEN TAB 500 MG TAB PO ONE; -DEXAMETHASONE SOD PHOSPHATE 10 MG/ML 1 ML VIAL IV ONE; +HYDROmorphone 0.5 MG/0.5 ML SYRINGE IVP PRN; +LIDOCAINE 1% (10MG/ML) FOR IV START INTRADERMA PRN; -LIDOCAINE 1% 20 ML VIAL (10MG/ML) FOR IV START INTRADERMA PRN; -MELOXICAM 7.5 MG TAB PO ONE; -MIDAZOLAM (PF) 2 MG/2 ML VIAL IV PRN; -ONDANSETRON 4 MG/2 ML VIAL IVP ONE; +TRANEXAMIC 1,000 MG/100ML-NACL 1,000 MG in SALINE 1 100ML.BAG IVPB PRN; -TRANEXAMIC ACID 1,000 MG in SODIUM CHLORIDE 0.9% 50 ML IVPB ONE; -ceFAZolin IN SWFI 2 GM/20 ML SYRINGE IVP ONE; -fentaNYL (PF) 50 MCG/ML 2 ML AMP IV PRN
[2024-11-02] MEDS: LACTATED RINGERS 1,000 ML IV ONE (08:37)
[2024-11-02] MEDS: MELOXICAM 7.5 MG TAB PO PRN (09:27)
[2024-11-02] MEDS: ACETAMINOPHEN TAB 500 MG TAB PO PRN (09:27)
[2024-11-02] MEDS: fentaNYL (PF) 50 MCG/ML 2 ML AMP IVP PRN (09:31)
[2024-11-02] MEDS: MIDAZOLAM 2 MG/2 ML VIAL IV PRN (09:31)
[2024-11-02] MEDS: ONDANSETRON 4 MG/2 ML VIAL IVP ONE (09:38)
[2024-11-02] MEDS: DEXAMETHASONE SOD PHOSPHATE 4 MG/ML 1 ML VIAL IV ONE (09:38)
[2024-11-02] MEDS: LACTATED RINGERS 1,000 ML IV SCH (09:41)
--- NOTE | 2024-11-02 09:43 | P.ANPRN ---
Procedure Note - Anesthesia - Nerve Block Performed Right Mina Single Time Out Performed: Yes Date of Procedure: 11/02/24 Procedure Start Time: :30 Procedure Stop Time: :36 Location of Patient: PreOp Indication: Acute Post-Operative Pain, Requested by Surgeon Sedation Type: Sedate with meaningful contact maintained Preparation: Sterile Prep Position: Supine Needle Types: Pajunk Needle Gauge: 21 Ultrasound used to visualize needle placement: Yes Ultrasound used to observe medication spread: Yes Injectate: 0.5% Ropivacaine (see comment for volume) (30 mL +4 mg dexamethasone) Blood Aspirated: No Pain Paresthesia on Injection Noted: No Resistance on Injection: Normal Image Stored and Saved: Yes Events: Uneventful and Well Tolerated
[2024-11-02 09:50] LABS: Basophils % (A) 1 %; Eosinophils # (A) 0.3 k/uL (0-0.7); Eosinophils % (A) 4 %; HCT 46.8 % (39.0-53.0); HGB 15.6 gm/dL (13.0-17.5); Lymphocytes # (A) 2.3 k/uL (1.0-4.8); Lymphocytes % (A) 29 %; MCH 31.1 pg (25.0-35.0); MCHC 33.2 g/dL (31.0-37.0); MCV 93.4 fL (80.0-100.0); Mean Platelet Volume 8.6; Monocytes # (A) 0.4 k/uL (0-1.0); Monocytes % (A) 5 %; Neutrophils # (A) 4.6 k/uL (1.3-7.7); Neutrophils % (A) 60 %; Platelet Count 245 k/uL (150-450); RBC 5.01 m/uL (4.30-5.90); WBC 7.7 k/uL (3.8-10.6)
[2024-11-02 09:59] LABS: INR 0.9 (<1.2); Partial Thromboplastin Time 24.6 sec (22.0-30.0); Prothrombin Time 10.2 sec (10.0-12.5)
[2024-11-02] MEDS ORDERED: NEOSTIGMINE 1 MG/ML 10 ML VIAL ONE (10:24)
[2024-11-02] MEDS ORDERED: KETAMINE HCL IN 0.9 % NACL 50 MG/5 ML SYRINGE ONE (10:24)
[2024-11-02] MEDS ORDERED: MIDAZOLAM 2 MG/2 ML VIAL ONE (10:24)
[2024-11-02] MEDS ORDERED: DEXAMETHASONE SOD PHOSPHATE 4 MG/ML 1 ML VIAL ONE (10:24)
[2024-11-02] MEDS ORDERED: PHENYLEPHRINE-0.9% NACL SYG 1,000 MCG/10 ML SYRINGE ONE (10:24)
[2024-11-02] MEDS ORDERED: LIDOCAINE 1% INJ 10MG/ML (20 ML MDV) ONE (10:24)
[2024-11-02] MEDS ORDERED: HYDROmorphone (PF) 1 MG/ML ONE (10:24)
[2024-11-02] MEDS ORDERED: ROPIVACAINE 5 MG/ML 30 ML VIAL ONE (10:24)
[2024-11-02] MEDS ORDERED: SUCCINYLCHOLINE CHLORIDE 200 MG/10 ML VIAL IV ONE (10:24)
[2024-11-02] MEDS ORDERED: TRANEXAMIC 1,000 MG/100ML-NACL PREMIX BAG ONE (10:24)
[2024-11-02] MEDS ORDERED: GLYCOPYRROLATE 0.2 MG/ML 2 ML VIAL ONE (10:24)
[2024-11-02] MEDS ORDERED: PROPOFOL 10 MG/ML 20 ML VIAL IV ONE (10:24)
[2024-11-02] MEDS ORDERED: ROCURONIUM 10 MG/ML (5 ML VIAL) IV ONE (10:24)
[2024-11-02] MEDS ORDERED: fentaNYL (PF) 50 MCG/ML 2 ML AMP ONE (10:24)
[2024-11-02] MEDS: ceFAZolin 1,000 MG in SODIUM CHLORIDE 0.9% 1,000 ML IRRIGATION ONE (10:57)
--- NOTE | 2024-11-02 12:13 | FL ---
EXAMINATION TYPE: FL guidance operating room, XR Hip Limited RT DATE OF EXAM: 11/02/2024 12:09 PM COMPARISON: Pre Operative Images if available both CT/MRI or plain film CLINICAL INDICATION: Male, 59 years old with history of RT anterior hip; TECHNIQUE: FL guidance operating room, XR Hip Limited RT, multiple fluoroscopic images provided for p rocedure. DAP: 1.2833 mGym2 Gycm2 uGym2 cGycm2 or equivalent. FINDINGS: Fluoroscopic images during internal fixation/arthroplasty demonstrate hardware in appropriate positio n. Hardware appears intact. No immediate complication identified. IMPRESSION: 1. No evidence for intraoperative complication. 2. Please see the operative/procedural note for further details. [facility], , 11/02/2024 12:11 PM
[2024-11-02] MEDS ORDERED: hydrOXYzine pamoate 25 MG CAP PO PRN (12:15)
[2024-11-02] MEDS ORDERED: HYDROmorphone 0.5 MG/0.5 ML SYRINGE IVP PRN ×2 (12:15)
[2024-11-02] MEDS ORDERED: NALOXONE 0.4 MG/ML 1 ML VIAL IV PRN (12:15)
[2024-11-02] MEDS ORDERED: MAGNESIUM HYDROXIDE 2,400 MG/30 ML CUP PO PRN (12:15)
[2024-11-02] MEDS ORDERED: HYDROcodone/APAP 5-325MG 1 EACH TAB PO PRN (12:15)
--- NOTE | 2024-11-02 12:31 | P.OP ---
Date of Procedure: 11/02/24 Preoperative Diagnosis: Right hip severe osteoarthrosis Postoperative Diagnosis: Same Procedure(s) Performed: Right total hip arthroplastypress-fitanterior approach Implants: Depuy Corail size 12standardpress-fit collared femoral stem, 36+5 cobalt chrome femoral head, 56 mm [place] acetabular shell with neutral polyethylene liner. I did utilize a 6.5 x 25 mm cancellous screw. Anesthesia: GETA Surgeon: John Garcia Industrial Renderer #1: Destin Paige Estimated Blood Loss (ml): 100 Pathology: none sent Condition: stable Disposition: PACU Indications for Procedure: The patient is a 59-year-old male who presents with progressive right hip pain secondary to osteoarthrosis despite conservative measures. A discussion of the risks and benefits of operative intervention versus continued conservative measures was made with the patient. He opted to proceed with surgery. Operative risks include infection, neurovascular injury, development of blood clots, fracture, leg length discrepancy, possible instability, possible compone nt loosening/failure and possible need for subsequent procedures was discussed. Informed consent was obtained. Operative Findings: As below Description of Procedure: The patient was brought to the operating room, and after induction of spinal anesthesia was placed supine on the Lorie table. Positioning was checked with fluoroscopy. The right hip was then prepped and draped in a normal fashion. A 12 cm incision was then made starting 2 fingerbreadths distal and 3 finger breaths posterior to the ASIS in line with the proximal femur. The skin was incised sharply. Subcutaneous tissues were divided sharply. Electrocautery was used for hemostasis. The fascia was split in line with skin incision. The interval between the sartorius and tensor fascia bisi was then bluntly developed. The posterior fascia was opened with electrocautery. The lateral circumflex vessels were identified and cauterized prior to sectioning. A retractor was placed along the superior femoral neck as well as the anterior acetabular rim. A wide capsulotomy was performed. The neck cut was then made at a 45 angle to the shaft approximately 1 1/2 cm above the level of the lesser trochanter. The head was extracted. Attention was then paid towards preparing the acetabular. Anterior and posterior retractors were placed. The remaining capsular labral tissue sharply debrided clearly defining the acetabular margins. I began reaming with a 51 mm reamer taking care to initially medialize then reaming at 45 of abduction and 20 of anteversion. Sequential reaming is performed up to 55 mm. A trial 56 mm acetabular shell was inserted in the same orientation and was fully seated. There was good rim fit and stability. Positioning was checked with fluoroscopy. The final 56 mm acetabular shell was inserted again at 45 of abduction and 20 of anteversion. This was fully seated. A 6.5 mm x 25 mm cancellous screw was placed posterior superior with good purchase. Again fluoroscopy was used to check the adequacy of placement. A neutral polyethylene liner was gently impacted. Care was taken to avoid any soft tissue interposition. Pulsatile lavage was utilized. Attention was then paid towards preparing the proximal femur. The central region was cleared of soft tissue. A canal finder was used to find the femoral canal. Sequential broaching was performed up to size 12 taking care to lateralize proximally. A calcar mill was used to fashion the medial calcar. There was good rotational stability. A standard neck along with a 36 mm +5 head was placed. The hip was gently reduced. Fluoroscopy was used to check the adequacy of positioning along with leg lengths. I felt both were good. The hip was gently dislocated. The trial components were removed. The final size 12 -135 degree collared standard press-fit femoral stem was inserted parallel to the posterior cortex. This was fully seated and there was good rotational stability. A 36 mm +5 cobalt chrome femoral head was placed. This was gently impacted. The hip was then gently reduced. Final fluoroscopic view showed adequate placement implant along with samaritan of leg length. Stability was checked with 80 of external rotation and 60 of extension of the right hip. The wound was irrigated with sterile lavage. The fascia was closed with running 0 Vicryl suture. There was minimal drainage therefore a deep drain was not placed. The second dose of IV TXA was given. The subcutaneous tissues were reapproximated interrupted 2-0 Vicryl sutures. The skin was reapproximated with 3-0 subcuticular strata fix suture. Skin tape and adhesive was applied. A sterile dressing was applied. The patient was then awoken from sedation and transferred to recovery room in good condition. Blood loss was estimated at 100 mL. No complications were incurred. Sponge and needle counts were correct at the end of the case. Destin ALFONSO assisted during the major components is case to include exposure, bone resection, implantation, and closure.
[2024-11-02 12:34] VITALS: TEMP 97.4
--- NOTE | 2024-11-02 13:22 | XR ---
EXAMINATION TYPE: XR Hip Limited RT DATE OF EXAM: 11/02/2024 1:03 PM COMPARISON: Plain film CLINICAL INDICATION: Male, 59 years old with history of Status post hip surgery, assess surgical alig nmcamacho; PHH, pain TECHNIQUE: XR Hip Limited RT; Frontal view FINDINGS: Post arthroplasty changes, hardware is intact, alignment is appropriate. No evidence of fra cture. Postoperative changes of the soft tissues with subcutaneous gas. No evidence of any acute osse ous pathology or joint dislocation. IMPRESSION: Hip arthroplasty with hardware intact and in appropriate alignment. No acute fracture. [facility], , 11/02/2024 1:19 PM
[2024-11-02] MEDS: HYDROcodone/APAP 7.5-325MG 1 EACH TAB PO PRN (13:42)
[2024-11-02 14:06] VITALS: BP 109/62; PULSE 78; RESP 16
[2024-11-02] MEDS ORDERED: SENNOSIDES-DOCUSATE SODIUM 1 EACH TAB PO SCH (21:00)
== END 2024-11-02 15:05 | disposition home health service (06) ==
LOC: OR 08:06
PROVIDERS: ATTEND Orthopaedic Surgery
DX: M16.11 Unilateral primary osteoarthritis, right hip (principal); I10 Essential (primary) hypertension; F17.200 Nicotine dependence, unspecified, uncomplicated; Z98.890 Other specified postprocedural states; Z79.1 Long term (current) use of non-steroidal anti-inflammatories (NSAID); Z79.899 Other long term (current) drug therapy
CPT/HCPCS: 27130; 97161; 97166; 64473; 85025; 85610; 85730; 73501; C1776; J2250; J0330; J1100; J2710; J0690 ×2; J2405; J2003; J3010; J1171; J2795; J2704; J2371; J1596; 64999